=== PATIENT | female | born 1995 | race Hispanic/Latino ===

== ENCOUNTER 2017-08-26 23:04 | Emergency (ER) | payer SELFPAY ==
[~2017-08-26] VITALS: Ht 162.6 cm; Wt 69.9 kg
[2017-08-26] MEDS ORDERED: KETOROLAC TROMETHAMINE 60 MG/2 ML VIAL IM ONE (23:45)
== END 2017-08-26 23:47 | disposition home or self-care (01) ==
LOC: FSED 23:04
DX: G44.209 Tension-type headache, unspecified, not intractable (principal)
CPT/HCPCS: 99282; J1885